=== PATIENT | male | born 1945 | race Caucasian/White ===

== ENCOUNTER 2018-11-09 12:06 | Emergency (ER) | payer MEDICARE ==
[~2018-11-09] VITALS: Ht 170.2 cm; Wt 74.6 kg
[2018-11-09 12:07] VITALS: BP 159/88
[2018-11-09] MEDS ORDERED: KETOROLAC 30 MG/1 ML IM ONE (12:30)
[2018-11-09] MEDS ORDERED: KETOROLAC 30 MG/1 ML ONE (12:34)
[2018-11-09] MEDS ORDERED: CEPHALEXIN 500 MG CAPSULE ONE (12:35)
[2018-11-09] MEDS ORDERED: CEPHALEXIN 500 MG CAPSULE PO ONE (13:00)
== END 2018-11-09 13:00 | disposition home or self-care (01) ==
LOC: ED 12:55
DX: L03.115 Cellulitis of right lower limb (principal); I10 Essential (primary) hypertension
CPT/HCPCS: 73564; 96372; 99283; J1885